=== PATIENT | female | born 1955 | race Hispanic/Latino ===

== ENCOUNTER → 2024-07-15 18:13 | Outpatient (REF) | payer MEDICARE, OTHER, SELFPAY | LOC: WDC 18:13 | PROVIDERS: ATTENDING PHYSICIAN Student in an Organized Health Care Education/Training Program | DX: Z12.31 Encounter for screening mammogram for malignant neoplasm of breast (principal) | CPT/HCPCS: 77063; 77067 ==

== ENCOUNTER 2024-10-07 22:34 | Emergency (ER) | payer MEDICARE, OTHER, SELFPAY ==
[2024-10-07 22:37] VITALS: BP 124/69
--- NOTE | 2024-10-08 01:54 | ED.GENMED ---
History of Present Illness
General
Chief Complaint: Post Operative Problem(s)
Source: patient, family and other (Discharge instructions from [facility])
Exam Limitations: none (Patient's primary language is Fijian, multiple family members at bedside interpreting for the patient)
Time Seen by Provider: 10/08/24 01:44
Nursing documentation reviewed up to this point in time: agreed with
History of Present Illness
History of Present Illness:
This is a 68-year-old woman who underwent right total knee replacement yesterday, October 06 at [facility].
Same-day surgery, discharged to home October 06 and placed on Tylenol 650 mg to be taken every 6 hours, low-dose aspirin twice daily, Colace twice daily, gabapentin 100 mg 2 capsules twice daily, oxycodone 5 mg 1 tablet every 4 hours as needed for
pain. She is to start meloxicam 15 mg daily tomorrow, October 08.
She complains of severe pain to her right knee, nausea and vomiting throughout the day today, unable to keep her pain medication down.
She has not had a fever nor chills. No fall. No weakness or numbness.
Home care nurse did visit earlier today and brought in a knee brace. Plan is for physical therapy/home care to visit again tomorrow, October 08.
Her other daily medications include: Atorvastatin, Zyrtec, magnesium oxide, metoprolol succinate, propafenone, vitamin E, vitamin B complex
Past History
Past History
ED Past Medical History: Arrthythmia, HTN, Hypercholesterolemia and Other (Obstructive sleep apnea)
ED Past Surgical History: Orthopedic (Right knee replacement September 2024)
Social History
Tobacco: Non-smoker
Personal:
Living: with family
Employment: Employed (Self-employed)
Family History
Family History: Other (Noncontributory)
Phy Exam
Physical Exam
Physical Exam:
GENERAL: 68-year-old Fijian-speaking woman appears her stated age, awake and alert, appears in moderate distress related to pain. Several family members accompanying and interpreting for patient. Vital signs within normal limits.
EYE: anicteric
NECK: Supple, nontender, no meningismus, no significant adenopathy.
ENT: oral mucosa is moist. No rhinorrhea.
CARDIAC: Regular rate and rhythm. no murmur.
LUNGS: Clear breath sounds bilaterally, no acute respiratory distress, no wheezes/rales/rhonchi
ABDOMEN: Soft, nondistended, without focal tenderness, normoactive BS.
NEUROLOGICAL: Alert and oriented x3, no focal neuro deficits.
SKIN: Warm and dry, normal color, skin intact. No rash.
MUSCULOSKELETAL: Thigh-high [place] stockings in place bilaterally. Right anterior knee vertically placed dressing is dry and intact. There is mild global joint effusion to right knee. No erythema nor ecchymosis. Moderate tenderness about the right
knee related to pain. Limited range of motion right knee related to pain. There is no calf tenderness nor swelling. Peripheral pulses are full and equal b/l.
PSYCH: Normal and appropriate interaction.
Course
Orders/Labs/Results
Orders:
Orders
10/08/24 01:53
0.9% Sodium Chloride 1000 ml [Nss] 1,000 ml IV BOLUS
HYDROmorphone [Dilaudid] 1 mg IV NOW STA
Ketorolac [Toradol] 15 mg IV NOW STA
Ondansetron Injectable [Zofran] 4 mg IV NOW STA
Vital Signs
Initial and Last Documented VS:
Initial Vital Signs
Temp Pulse Resp BP Pulse Ox
98.3 F 75 20 124/69 99
10/07/24 22:37 10/07/24 22:37 10/07/24 22:37 10/07/24 22:37 10/07/24 22:37
Last Documented Vital Signs
Temp Pulse Resp BP Pulse Ox
98.3 F 67 18 125/62 96
10/07/24 22:37 10/08/24 03:46 10/08/24 03:46 10/08/24 03:46 10/08/24 03:46
MDM/Problems Addressed
Differential Diagnosis Includes:
Patient presents with significant postop right knee pain status post right total knee replacement October 06.
Complains of nausea and has been unable to tolerate her oral doses of oxycodone. Unclear as to last dose of pain medication.
Reassuring that vital signs are within normal limits.
There is mild joint effusion right knee but overall looks good with dry and intact dressing.
Will initiate IV fluids, IV pain medication and antiemetics to hopefully improve postop pain control.
At this point no indication for laboratory studies nor imaging.
Chronic conditions affecting care: Other (Recent right knee surgery)
*Pulse Oximetry
Patient hypoxic: no
*Critical Care Note
Total Time (30-74mins, 75-104mins- exclusive of procedures): Not Applicable
Update Note
Update Note:
03:45
Patient feeling markedly improved, resting comfortably. Pain scale went from a 20 to now a 5.
No vomiting.
Will discharge to home with prescription for Zofran ODT. Recommend continuing oxycodone, initiate meloxicam today as already instructed.
Continue rest, ice, elevation.
Touch base with orthopedic surgeon today to discuss pain control options.
ED Attending Note
-
Portions of this chart may have been created with voice recognition software.� Occasional wrong word or��sound alike� substitutions may have occurred due to the inherent limitations of voice recognition software.
Discharge Plan
Departure
Patient Disposition: Home (Routine Discharge)
Date of Disposition: 10/08/24
Time of Disposition: 03:51
Patient with high blood pressure during this ER visit?: No
Condition: Good
Discharge Problem:
Post-operative pain
Instructions: Postoperative Pain (DC)
Prescriptions:
New
ondansetron 4 mg tablet,disintegrating
4 mg PO QID PRN (Reason: nausea and vomiting) Qty: 20 0RF
No Action
ondansetron [Zofran ODT] 8 MG tablet,disintegrating
8 mg PO Q6HPRN Qty: 6 0RF
diazepam 5 MG tablet
5 mg PO TIDPRN PRN (Reason: MUSCLE SPASM/TIGHTNESS) Qty: 12 0RF
Referrals:
UNKNOWN - PT DOES,NOT KNOW [Family Provider] -
Interventions
Interventions:
*Risk Screen - Suicide Last Done: 10/08/24 01:51
*General Assessment Last Done: 10/07/24 22:37
*Neglect/Abuse Screening Last Done: 10/08/24 01:51
*ED COVID-19 Vaccine History Last Done: 10/08/24 01:51
ED-Skin Assessment Last Done: 10/08/24 01:51
Discharge Date and Time
Print Language: GUYANESE
[2024-10-08] MEDS: TORADOL 15 MG IV (02:18)
[2024-10-08] MEDS: NSS 1000 IV (02:19)
[2024-10-08] MEDS: ZOFRAN 4 MG IV (02:19)
[2024-10-08] MEDS: DILAUDID 1 MG IV (02:19)
[2024-10-08 03:46] VITALS: BP 125/62
[2024-10-08] MEDS: ZOFRAN ODT (ORALLY DISINTEGRATING) 4 MG PO (04:06)
== END 2024-10-08 04:28 | disposition home or self-care (01) ==
LOC: EMR 22:34
PROVIDERS: EMERGENCY PHYSICIAN Emergency Medicine
DX: G89.18 Other acute postprocedural pain (principal); M25.561 Pain in right knee; I10 Essential (primary) hypertension; E78.00 Pure hypercholesterolemia, unspecified; G47.33 Obstructive sleep apnea (adult) (pediatric); Z79.899 Other long term (current) drug therapy; Z96.651 Presence of right artificial knee joint
CPT/HCPCS: 99282; 96374; 96375; 96361

== ENCOUNTER 2024-10-17 11:47 | Emergency (ER) | payer MEDICARE, OTHER, SELFPAY ==
[2024-10-17 12:24] LABS: % Basophils 0.3 % (0-2); % Eosinophils 0.5 % (0-6); % Immature Granulocytes 0.4 % (0-0.5); % Lymphocytes 8.3 % (20.5-51.1); % Monocytes 3.6 % (1.7-9.3); % Neutrophils 86.9 % (42.2-75.2); Absolute Eosinophils 0.1 10^3/uL (0-0.7); Absolute Lymphocytes 0.8 10^3/uL (1.2-3.4); Absolute Monocytes 0.3 10^3/uL (0.1-0.6); Hematocrit 34.3 % (37.0-47.0); Hemoglobin 11.7 g/dL (12.0-16.0); Mean Corp Hgb Conc. 34.1 g/dL (33.0-37.0); Mean Corpuscular Hgb 31.7 pg (27.0-31.0); Mean Platelet Volume 9.7 fL (7.4-10.4); Nucleated Red Blood Cells % 0 %; Platelet Count 295 10^3/uL (130-400); Red Blood Cell Count 3.69 10^6/uL (4.20-5.40); Red Cell Dist. Width 13.3 % (11.5-14.5); White Blood Cell Count 9.2 10^3/uL (4.8-10.8)
[2024-10-17 12:32] LABS: ALT (SGPT) 29 U/L (0-35); AST (SGOT) 22 U/L (14-36); Albumin 4.2 g/dl (3.5-5.0); Alkaline Phosphatase 87 U/L (38-126); Blood Urea Nitrogen 20 mg/dl (7-17); Calcium 9.9 mg/dl (8.4-10.2); Carbon Dioxide 27 mmol/L (22-30); Chloride 99 mmol/L (98-107); Glucose 124 mg/dl (70-99); Lipase 119 U/L (23-300); Potassium 4.6 mmol/L (3.5-5.1); Sodium 134 mmol/L (135-145); Total Bilirubin 1.2 mg/dl (0.2-1.3); Total Protein 6.8 g/dl (6.3-8.2); eGFR > 60.00
--- NOTE | 2024-10-17 15:38 | ED.GENMED ---
History of Present Illness
General
Chief Complaint: Dehydration Symptoms
Time Seen by Provider: 10/17/24 14:51
History of Present Illness
History of Present Illness:
68-year-old female presenting to the emergency department for persistent nausea and vomiting. Patient is status post right knee replacement on 10/06. Notes relatively uncomplicated course regarding her knee, however has had difficulty tolerating
her medications which have been making her nauseous with persistent nausea and vomiting. She had previously been on oxycodone, which was since stopped and switched to tramadol. She is now on tramadol, meloxicam, Tylenol. She only had the Tylenol
today. She went to urgent care secondary to the persistent nausea, was given Zofran and sent to the ER for concern of dehydration. She has been able to bear weight on her lower extremity. She has an upcoming appoint with orthopedics in 3 days.
Denies fever. Denies chest pain or difficulty breathing. Denies additional acute medical complaints
Past History
Past History
ED Past Medical History: Arrthythmia, HTN, Hypercholesterolemia and Other (Obstructive sleep apnea)
ED Past Surgical History: Orthopedic (Right knee replacement September 2024)
Social History
Tobacco: Non-smoker
Personal:
Living: with family
Employment: Employed (Self-employed)
Family History
Family History: Other (Noncontributory)
Phy Exam
Physical Exam
Physical Exam:
General: Well-appearing, no clinical signs of dehydration, nontoxic and in no acute distress
HEENT: protecting airway
Neck: appears supple
CV: Normal heart rate, regular rhythm
Resp: No accessory muscle use, no increased work of breathing, lungs clear to auscultation bilaterally
Abd: Soft and non-distended, no tenderness to palpation
Extremities: Generalized postoperative swelling to the right knee with healing midline incision, no erythema, no warmth, no drainage. Scattered healing ecchymosis. Distal sensation and pulses intact
Neuro: alert, no focal neurologic deficit
: deferred
Rectal: deferred
Psych: Normal affect
Skin: Intact
Course
Orders/Labs/Results
Orders:
Orders
10/17/24 12:11
CMP [Comprehensive Metabolic Panel] Urgent
Complete Blood Count/With Diff Urgent
Lipase Urgent
10/17/24 15:28
0.9% Sodium Chloride 1000 ml [Nss] 1,000 ml IV BOLUS
Ketorolac [Toradol] 15 mg IV NOW STA
Metoclopramide [Reglan] 5 mg IV NOW STA
Abnormal Lab Results
10/17/24
12:11
RBC 3.69 L 10^6/uL
(4.20-5.40)
Hgb 11.7 L g/dL
(12.0-16.0)
Hct 34.3 L %
(37.0-47.0)
MCH 31.7 H pg
(27.0-31.0)
Absolute Neuts (auto) 8.0 H 10^3/uL
(1.4-6.5)
Absolute Lymphs (auto) 0.8 L 10^3/uL
(1.2-3.4)
Neutrophils % 86.9 H %
(42.2-75.2)
Lymphocytes % 8.3 L %
(20.5-51.1)
Sodium 134 L mmol/L
(135-145)
BUN 20 H mg/dl
(7-17)
Glucose 124 H mg/dl
(70-99)
10/17/24 12:11
10/17/24 12:11
Vital Signs
Initial and Last Documented VS:
Initial Vital Signs
BP
138/56
10/17/24 16:00
Last Documented Vital Signs
BP Pulse Ox
138/56 100
10/17/24 16:00 04/26/25 16:15
MDM/Problems Addressed
MDM/Problems Addressed:
68-year-old female presenting to the emergency department with nausea and vomiting. Vital signs on arrival are .
On exam patient is resting comfortably, no acute distress or discomfort. No significant signs of severe dehydration, minimally dry mucous membranes. Reassuring abdominal exam without tenderness to the abdomen, lower suspicion for any serious
intra-abdominal process or infection. Ultimately suspect nausea and vomiting from patient's medication regiment. She is also taking gabapentin which she feels has been worsening her symptoms, so is going to stop this medication. She is now only
taking the Tylenol, meloxicam, tramadol. Screening laboratory analysis obtained, unremarkable. Will treat patient with IV fluids and Toradol for pain. Will give Reglan for nausea and reassess for improvement
18:20- On reassessment, patient reports she is feeling better with fluids and Toradol. She would prefer to go home. Feel that this is reasonable. Patient is going to stop her gabapentin. Will try switching her meloxicam to Toradol. At this time
feel stable for discharge with follow-up with her orthopedic doctor on Saturday. Return discussed and patient verbalized understanding
*Critical Care Note
Total Time (30-74mins, 75-104mins- exclusive of procedures): Not Applicable
ED Attending Note
-
Portions of this chart may have been created with voice recognition software.� Occasional wrong word or��sound alike� substitutions may have occurred due to the inherent limitations of voice recognition software.
Discharge Plan
Departure
Patient Disposition: Home (Routine Discharge)
Date of Disposition: 10/17/24
Time of Disposition: 18:22
Patient with high blood pressure during this ER visit?: No
Condition: Good
Discharge Problem:
Nausea and vomiting
Instructions: Nausea and Vomiting, Adult (DC)
Prescriptions:
New
ketorolac 10 mg tablet
10 mg PO Q8H PRN (Reason: Pain) 5 Days Qty: 15 0RF
No Action
ondansetron [Zofran ODT] 8 MG tablet,disintegrating
8 mg PO Q6HPRN Qty: 6 0RF
diazepam 5 MG tablet
5 mg PO TIDPRN PRN (Reason: MUSCLE SPASM/TIGHTNESS) Qty: 12 0RF
ondansetron 4 mg tablet,disintegrating
4 mg PO QID PRN (Reason: nausea and vomiting) Qty: 20 0RF
Referrals:
UNKNOWN - PT DOES,NOT KNOW [Family Provider] -
Activity Restrictions/Additional Instructions:
You were seen in the emergency department for nausea and vomiting
You were found to have normal blood work and you are given IV fluids. We suspect that your symptoms are from your medications. You were switched from meloxicam to ketorolac. Please also stop taking the gabapentin. Please follow-up closely with
your orthopedic doctor as scheduled.
Please follow-up closely with your primary care physician.
Return to the emergency department for any worsening of your symptoms, or any development of chest pain, difficulty breathing, abdominal pain with persistent vomiting and inability to tolerate food or liquid by mouth (concern for dehydration),
weakness, headache or confusion, fever greater than 100.4, or any additional symptoms that are concerning to you.
Thank you for choosing [facility].
Interventions
Interventions:
*Risk Screen - Suicide Last Done: 10/17/24 11:53
*General Assessment Last Done: 10/17/24 15:51
*Neglect/Abuse Screening Last Done: 10/17/24 11:53
*ED- Fall Risk Assessment Last Done: 10/17/24 15:51
*ED COVID-19 Vaccine History Last Done: 10/17/24 11:53
AX-Mvvjbm-Zufjzmtqqz Assessment Last Done: 10/17/24 15:51
ED- Cardiac Assessment Last Done: 10/17/24 15:51
ED- Neurological Assessment Last Done: 10/17/24 15:51
ED- Pulmonary Assessment Last Done: 10/17/24 15:51
Discharge Date and Time
Print Language: AMERICAN
[2024-10-17 15:51] VITALS: BMI 29.5
[2024-10-17] MEDS: REGLAN 5 MG IV (15:54)
[2024-10-17] MEDS: TORADOL 15 MG IV (15:54)
[2024-10-17] MEDS: NSS 1000 IV (15:55)
[2024-10-17 16:00] VITALS: BP 138/56
== END 2024-10-17 18:35 | disposition home or self-care (01) ==
LOC: EMR 11:47
PROVIDERS: Emergency Medicine; EMERGENCY PHYSICIAN Student in an Organized Health Care Education/Training Program
DX: R11.2 Nausea with vomiting, unspecified (principal); E78.00 Pure hypercholesterolemia, unspecified; I10 Essential (primary) hypertension; Z96.651 Presence of right artificial knee joint
CPT/HCPCS: 96374; 96375; 96361; 99284; 80053; 83690; 85025

== ENCOUNTER 2025-03-16 12:32 | Emergency (ER) | payer MEDICARE, OTHER, SELFPAY ==
[2025-03-16 12:37] VITALS: BP 108/80
[2025-03-16 12:51] LABS: Hematocrit 36.6 % (37.0-47.0); Hemoglobin 12.6 g/dL (12.0-16.0); Mean Corp Hgb Conc. 34.4 g/dL (33.0-37.0); Mean Corpuscular Volume 88.6 fL (81.0-99.0); Nucleated Red Blood Cells % 0 %; Platelet Count 305 10^3/uL (130-400); Red Cell Dist. Width 14.1 % (11.5-14.5)
[2025-03-16 13:11] LABS: ALT (SGPT) 24 U/L (0-35); AST (SGOT) 26 U/L (14-36); Albumin 4.8 g/dl (3.5-5.0); Alkaline Phosphatase 97 U/L (38-126); Blood Urea Nitrogen 21 mg/dl (7-17); Calcium 10.1 mg/dl (8.4-10.2); Carbon Dioxide 23 mmol/L (22-30); Chloride 101 mmol/L (98-107); Glucose 145 mg/dl (70-99); Potassium 4.2 mmol/L (3.5-5.1); Sodium 134 mmol/L (135-145); Total Protein 7.7 g/dl (6.3-8.2); eGFR > 60.00
[2025-03-16 13:16] LABS: Lipase 161 U/L (23-300)
--- NOTE | 2025-03-16 13:52 | ED.GENMED ---
History of Present Illness
General
Chief Complaint: Abdominal Symptoms
Source: patient
Exam Limitations: none
Time Seen by Provider: 03/16/25 13:42
History of Present Illness
History of Present Illness:
69yoF with a history of hyperlipidemia, GERD, and tachycardia presenting with her son for evaluation of vomiting. Symptoms began 2 days ago after she took a dose of MiraLAX. She had a left knee replacement at [facility] about 2 weeks ago. She has
been taking tramadol and Zofran at home for her symptoms. She has been unable to tolerate p.o. intake over the past 24 hours. She noticed a very small amount of blood in the emesis last night. She has vomited twice so far today and has not noted
any hematemesis since then. She denies any chest pain, shortness of breath, abdominal pain, diarrhea.
Past History
Past History
ED Past Medical History: Arrthythmia, HTN, Hypercholesterolemia and Other (Obstructive sleep apnea)
ED Past Surgical History: Orthopedic (Right knee replacement September 2024)
Social History
Tobacco: Non-smoker
Personal:
Living: with family
Employment: Employed (Self-employed)
Family History
Family History: Other (Noncontributory)
Phy Exam
General Physical Exam
General Presentation: well appearing and no apparent distress
General Skin: warm and dry
General Habitus: normal
General Mental: alert
ENT Exam
ENT Exam: normocephalic
Cardiovascular Exam
Cardiovascular Exam: regular rate/rhythm
Pulmonary Exam
Pulmonary Exam: lungs clear, no respiratory distress, no rales, no crackles, no rhonchi and no wheezing
Gastrointestinal Exam
Gastrointestinal Exam: non tender, soft and non distended
Neurological Exam
Neurological Exam: alert
Phoebe Coma Scale
Eye Opening: Spontaneous
Verbal Response: Oriented
Motor Response: Obeys Commands
GCS Total Score: 15
Musculoskeletal Exam
Musculoskeletal Exam: other (L knee surgical incision c/d/i without signs of infection)
Skin Exam
Skin Exam: normal color and warm/dry
Psychiatric Exam
Psychiatric Exam: normal mood/affect
Course
Orders/Labs/Results
Orders:
Orders
03/16/25 12:42
Complete Blood Count/With Diff Urgent
Comprehensive Metabolic Panel Urgent
Lipase Urgent
03/16/25 13:51
0.9% Sodium Chloride 1000 ml [Nss] 1,000 ml IV BOLUS
Ondansetron Injectable [Zofran] 4 mg IV NOW STA
Pantoprazole [Protonix IV] 40 mg IV NOW STA
03/16/25 14:39
Famotidine [Pepcid] 20 mg IV NOW STA
03/16/25 15:05
Tramadol HCl [Ultram] 50 mg PO NOW STA
Abnormal Lab Results
03/16/25
12:42
RBC 4.13 L 10^6/uL
(4.20-5.40)
Hct 36.6 L %
(37.0-47.0)
Absolute Neuts (auto) 7.8 H 10^3/uL
(1.4-6.5)
Absolute Lymphs (auto) 0.9 L 10^3/uL
(1.2-3.4)
Neutrophils % 85.2 H %
(42.2-75.2)
Lymphocytes % 9.8 L %
(20.5-51.1)
Sodium 134 L mmol/L
(135-145)
BUN 21 H mg/dl
(7-17)
Glucose 145 H mg/dl
(70-99)
03/16/25 12:42
03/16/25 12:42
Vital Signs
Initial and Last Documented VS:
Initial Vital Signs
Temp Pulse Resp BP Pulse Ox
98.2 F 91 18 108/80 96
03/16/25 12:37 03/16/25 12:37 03/16/25 12:37 03/16/25 12:37 03/16/25 12:37
Last Documented Vital Signs
Temp Pulse Resp BP Pulse Ox
98.2 F 91 18 108/80 96
03/16/25 12:37 03/16/25 12:37 03/16/25 12:37 03/16/25 12:37 03/16/25 13:53
MDM/Problems Addressed
Differential Diagnosis Includes:
69yoF here with n/v x 2 days. Started after taking Miralax. Had a small amount of blood yesterday but none today. Recent L knee replacement 2 weeks ago. No CP/SOB. No abd pain/diarrhea. VSS. She is well-appearing in no distress. Abdominal exam is
benign. Differential diagnosis includes but is not limited to: Gastroenteritis, medication side effect, dehydration
Initial ED plan: Lab work obtained in triage. Sodium is 134. Remainder of electrolytes are normal and creatinine is 0.6. Hemoglobin normal at 12.6. Will give IV Zofran, Protonix, and fluid bolus.
*Pulse Oximetry
SaO2: 96
Patient hypoxic: no
*Critical Care Note
Total Time (30-74mins, 75-104mins- exclusive of procedures): Not Applicable
Update Note
Update Note:
Patient feeling significantly improved after medications. She was able to tolerate p.o. challenge of crackers and water. Patient stable for discharge. She does have Zofran at home but only has the pills and son is requesting a prescription for
ODT tablets which was provided. Patient has an appointment tomorrow scheduled with her surgeon. ED return precautions reviewed. Patient and son in agreement with plan and she was discharged in stable condition.
ED Attending Note
-
Portions of this chart may have been created with voice recognition software.� Occasional wrong word or��sound alike� substitutions may have occurred due to the inherent limitations of voice recognition software.
Discharge Plan
Departure
Patient Disposition: Home (Routine Discharge)
Date of Disposition: 03/16/25
Time of Disposition: 15:30
Patient with high blood pressure during this ER visit?: No
Discharge Problem:
Nausea and vomiting
Instructions: Nausea and Vomiting, Adult (DC)
Prescriptions:
New
ondansetron 4 mg tablet,disintegrating
4 mg PO Q6H PRN (Reason: nausea and vomiting) Qty: 20 0RF
No Action
ondansetron [Zofran ODT] 8 MG tablet,disintegrating
8 mg PO Q6HPRN Qty: 6 0RF
diazepam 5 MG tablet
5 mg PO TIDPRN PRN (Reason: MUSCLE SPASM/TIGHTNESS) Qty: 12 0RF
ondansetron 4 mg tablet,disintegrating
4 mg PO QID PRN (Reason: nausea and vomiting) Qty: 20 0RF
ketorolac 10 mg tablet
10 mg PO Q8H PRN (Reason: Pain) 5 Days Qty: 15 0RF
Referrals:
UNKNOWN - PT DOES,NOT KNOW [Family Provider]
Activity Restrictions/Additional Instructions:
Take Zofran as needed for nausea. Drink plenty of fluids and eat a bland diet (bananas, rice, applesauce, toast).
Please follow-up with your surgeon tomorrow as previously scheduled. Return to the ER with any new or worsening symptoms.
Interventions
Interventions:
*Risk Screen - Suicide Last Done: 03/16/25 12:38
*General Assessment Last Done: 03/16/25 14:53
*Neglect/Abuse Screening Last Done: 03/16/25 12:38
*ED- Fall Risk Assessment Last Done: 03/16/25 14:53
QE-Hpgkgm-Cvnfdybyaa Assessment Last Done: 03/16/25 14:53
Discharge Date and Time
Print Language: VIETNAMESE
[2025-03-16] MEDS: PROTONIX IV 40 MG IV (14:34)
[2025-03-16] MEDS: ZOFRAN 4 MG IV (14:34)
[2025-03-16] MEDS: NSS 1000 IV (14:34)
[2025-03-16] MEDS: PEPCID 20 MG IV (14:46)
[2025-03-16] MEDS: ULTRAM 50 MG PO (15:09)
[2025-03-16 17:16] VITALS: BP 126/58
== END 2025-03-16 17:17 | disposition home or self-care (01) ==
LOC: EMR 12:32
PROVIDERS: Emergency Medicine; EMERGENCY PHYSICIAN Emergency Medicine
DX: R11.2 Nausea with vomiting, unspecified (principal); I10 Essential (primary) hypertension; E78.00 Pure hypercholesterolemia, unspecified; G47.33 Obstructive sleep apnea (adult) (pediatric); Z96.653 Presence of artificial knee joint, bilateral
CPT/HCPCS: 96374; 96375; 96361; 99284; 80053; 83690; 85025